=== PATIENT | female | born 1945 | race Caucasian/White ===

== ENCOUNTER 2023-12-08 21:49 | Observation (INO) ==
[2023-12-08 22:14] LABS: ABS Basophils 0.1 10^3/uL (0.0-0.1); ABS Eosinophils 0.1 10^3/uL (0.0-0.5); ABS Lymphocytes 1.3 10^3/uL (1.0-4.8); ABS Monocytes 0.7 10^3/uL (0.0-0.9); ABS Neutrophils 2.8 10^3/uL (1.5-7.6); ABS Nucleated RBC 0.01 10^3/ul; Eosinophil % 2.1 %; Hematocrit 39.1 % (35-45); Hemoglobin 13.4 g/dL (11.5-14.3); Lymphocyte % 26.8 %; Mean Corpuscular Hemoglobin 31.2 pg (27-33); Mean Corpuscular Hgb Conc 34.3 g/dL (31-36); Mean Corpuscular Volume 90.9 fL (80-97); Mean Platelet Volume 7.9 fL (7.5-11.2); Nucleated Red Blood Cells % 0.2 %/100WBC (0.0-0.8); Platelet Count 270 10^3/uL (150-450); Red Cell Distribution Width 13.7 % (12-17)
[2023-12-08] MEDS: Iodixanol (CONTRAST) 320 MG/ML 100 ML SDV IV ONE (22:19)
[2023-12-08 22:25] LABS: Activated Partial Thrombo Time 34.4 seconds (26.0-38.0); INR 1.14 (0.85-1.14)
[2023-12-08 23:48] LABS: Urine Appearance Clear; Urine Bilirubin Negative (Negative); Urine Blood Negative (Negative); Urine Color Colorless; Urine Glucose Negative (Negative); Urine Ketones Negative (Negative); Urine Nitrite Negative (Negative); Urine Protein Negative (Negative); Urine Specific Gravity 1.025 (1.002-1.030); Urine Urobilinogen Negative (Negative)
[2023-12-08] MEDS ORDERED: Sulfur Hexaflouride MICROSPHR 25 MG VIAL IV PRN (23:49)
[2023-12-09 00:01] LABS: Albumin 4.6 g/dL (3.2-5.2); Albumin/Globulin Ratio 1.8 (1-3); Calcium 9.3 mg/dL (8.6-10.3); Creatinine, Serum 0.67 mg/dL (0.51-0.95); Direct Bilirubin 0.1 mg/dL (0.03-0.18); Globulin 2.5 g/dL (2-4); HDL Cholesterol 89.6 mg/dL; Indirect Bilirubin 0.5 mg/dL (0.3-1.0); Potassium 4.4 mmol/L (3.5-5.0); Total Bilirubin 0.6 mg/dL (0.2-1.0); Total Protein 7.1 g/dL (6.4-8.9); eGFR CKD-EPI 89.4 (>60)
[2023-12-09 00:03] LABS: Urine Bacteria Absent /HPF (Absent); Urine Red Blood Cell Absent /HPF (0-Trace); Urine Squamous Epithelial Cell Present /HPF (Absent); Urine White Blood Cell 1+(6-10/hpf) /HPF (0-Trace)
[2023-12-09] MEDS: Enoxaparin 40 MG/0.4 ML SYR SUBCUT SCH (08:33)
[2023-12-09 15:09] VITALS: BP 140/79
== END 2023-12-09 13:43 | disposition short-term general hospital (02) ==
LOC: EDHOLD 21:49 → ED 21:49 → EDHOLD 12-09 14:00
PROVIDERS: ADMIT Internal Medicine; ATTEND Internal Medicine Hematology & Oncology